=== PATIENT | female | born 1965 ===

== ENCOUNTER 2021-03-24 19:48 | Emergency (ER) | payer BC ==
[~2021-03-24] VITALS: Ht 167.6 cm; Wt 88.5 kg
[2021-03-24] MEDS ORDERED: LOSARTAN POTASS50 MG (20:02)
[2021-03-24] MEDS ORDERED: LIPITOR20 MG (20:02)
== END 2021-03-24 22:37 | disposition home or self-care (01) ==
LOC: ER 19:48
DX: I16.1 Hypertensive emergency (principal); I10 Essential (primary) hypertension